=== PATIENT | female | born 1960 | race Caucasian/White ===

== ENCOUNTER → 2017-09-04 | Outpatient (CLI) | payer OTHER ==
[~2017-09-04] MED LIST: ALPRAZOLAM0.5 MG PO; FLEXERIL10 MG PO; GINGKO-GO120 MG PO; LORTAB 5/500 501 TAB PO; Z-TAB1 TAB PO
[2017-09-04 08:57] LABS: HEMOGLOBIN 14.7 g/dL (12.2-16.2); LYMPH # 2.5 K/mm3 (0.7-4.5); LYMPH % 29.5 % (10-50.0)
[2017-09-04 12:25] LABS: BUN 15 mg/dL (7-18)
[2017-09-04 12:26] LABS: GFR (ESTIMATED) 65 ML/MIN (59-)
--- NOTE | 2017-09-06 09:40 | RADIOLOGY REPORT PS360 ---
DIG MAMM-SCREEN RONNIE W/CAD CAD Screening COMPARISON: Digital mammograms 02/25/2015 and 05/31/2016 INDICATION: There is no personal or family history of breast cancer. The patient is on estrogen TECHNIQUE: Standard CC and MLO images were obtained. R2 CAD reviewed. FINDINGS: Moderate fibroglandular densities are seen in the central portions of both breasts and the findings are bilateral and symmetrical. There is a mole marker upper outer quadrant right breast. There are multiple benign-appearing calcifications primarily inner quadrants, some of which appear to be cutaneous. There is no new or suspicious lesion in either breast and there are no suspicious microcalcifications. IMPRESSION: Stable exam with no suspicious lesion seen recommend yearly follow-up BI-RADS CATEGORY: 2_Benign RECOMMENDED FOLLOWUP: 12M 12 MONTH FOLLOW-UP (A letter has been sent to the patient regarding results of the study.)
== END ==
LOC: RAD 08-28 16:00
PROVIDERS: Nurse Practitioner Obstetrics & Gynecology
DX: Z01.419 Encounter for gynecological examination (general) (routine) without abnormal findings (principal); Z12.31 Encounter for screening mammogram for malignant neoplasm of breast
CPT/HCPCS: G0202

== ENCOUNTER → 2017-09-12 | Outpatient (CLI) | payer OTHER ==
[2017-09-12 17:28] LABS: HEMOGLOBIN 13.4 g/dL (12.2-16.2); LYMPH # 2.6 K/mm3 (0.7-4.5); LYMPH % 42.7 % (10-50.0)
== END ==
LOC: LAB 17:07
PROVIDERS: Internal Medicine Adolescent Medicine
DX: B37.9 Candidiasis, unspecified (principal)